=== PATIENT | female | born 1965 | race Asian ===

== ENCOUNTER 2019-05-18 09:57 | Outpatient (CLI) | payer OTHER | END 2019-05-18 19:21 | disposition home or self-care (01) | LOC: RESP 09:57 → RAD 09:57 → RESP 10:00 → RAD 19:21 | DX: M35.01 Sjogren syndrome with keratoconjunctivitis (principal); M85.89 Other specified disorders of bone density and structure, multiple sites; R06.02 Shortness of breath ==